=== PATIENT | male | born 1960 | race Caucasian/White ===

== ENCOUNTER 2018-11-21 09:44 | Day surgery (SDC) | payer BC ==
[2018-11-21] MEDS ORDERED: PROPOFOL 10 MG/ML VIAL IV ONE (09:45)
[2018-11-21] MEDS ORDERED: LIDOCAINE 2% MDV (20MG/ML) 20ML VIAL IV ONE (09:45)
--- NOTE | 2018-11-23 13:40 | Operative Note ---
OPERATION: COLONOSCOPY to the cecum. INDICATION: Prior history of adenomatous polyps. The patient's last examination was in 2014. He returns at this time for surveillance. ANESTHESIA: Intravenous sedation was administered by the department of anesthesiology and included Diprivan titrated to effect. PROCEDURE: Following informed consent from this alert individual including a discussion of the risks and benefits of the procedure and an opportunity for the patient to ask questions, the patient was in the left lateral decubitus position. A digital rectal examination was performed. No abnormalities were noted. Following this, the Olympus [id number] video colonoscope was inserted into the rectum without resistance. The rectal mucosa had a normal appearance with normal folds and distensibility. The colonoscope was advanced up through the bowel to the level of the cecum without much difficulty. There were a few scattered diverticula noted in the sigmoid colon. No other mucosal changes were appreciated. The cecum was defined by noting the appendiceal orifice and ileocecal valve. The colon preparation overall was good. From the base of the cecum, the colonoscope was then withdrawn. No additional abnormalities were detected. Again diverticulosis was apparent in the sigmoid colon. No polyps were seen throughout. The endoscope was retroflexed within the rectum and failed to demonstrate changes. The instrument was straightened and withdrawn. The patient tolerated the procedure well and was returned to the recovery area in stable condition. IMPRESSION: Sigmoid diverticulosis. Otherwise unremarkable colonoscopy to the cecum. RECOMMENDATIONS: The patient was advised to have recheck colonoscopy in 5 years' time or sooner should problems arise. Followup will be with Dr. Angelo. As always, thank you for allowing me to participate in the care of your patient. CHARLENE
== END 2018-11-21 11:50 | disposition home or self-care (01) ==
LOC: HOP 09:44
PROVIDERS: ATTEND Internal Medicine Gastroenterology
DX: Z12.11 Encounter for screening for malignant neoplasm of colon (principal); K57.30 Diverticulosis of large intestine without perforation or abscess without bleeding; Z86.010 Personal history of colon polyps; I10 Essential (primary) hypertension
CPT/HCPCS: 00812; G0105